=== PATIENT | male | born 1980 | race Caucasian/White ===

== ENCOUNTER → 2018-08-09 | Outpatient (CLI) | payer OTHER ==
--- NOTE | 2018-08-09 15:42 | US ---
EXAMINATION TYPE: US extremity nonvasc mass LT DATE OF EXAM: 08/09/2018 COMPARISON: NONE CLINICAL HISTORY: 37-year-old male M79.89 soft tissue swelling, left thigh. Palpable lump left upper lateral thigh/hip area x 10 years. TECHNIQUE: Targeted sonographic examination along the patient's left lateral thigh at the site of pal pable concern. FINDINGS: Left thigh/hip area of concern: 1.0 x 0.6 x 1.0cm superficial hypoechoic structure just deep to and p ossibly partially involving the skin surface shows an area of internal vascularity. Right thigh/hip for comparison: appears wnl IMPRESSION: A 1 cm round hypoechoic nodule located in the subcutaneous adipose layer just deep to and possibly pa rtially involving the dermal layer. Some vascularity is present within. The exact etiology is uncerta in but given that it has been present for 10 years, a benign process is suggested. If symptomatic or if clinical concern, consider excision.
== END | disposition home or self-care (01) ==
LOC: RADUSWWP 14:39
PROVIDERS: ATTEND Internal Medicine
DX: R22.42 Localized swelling, mass and lump, left lower limb (principal)

== ENCOUNTER 2022-07-05 06:46 | Day surgery (SDC) | payer BC, OTHER ==
[2022-07-04 09:29] VITALS: BMI 33.9
[2022-07-05] MEDS ORDERED: LACTATED RINGERS 1,000 ML IV SCH (07:08)
[2022-07-05 07:20] VITALS: TEMP 96.9
[2022-07-05] MEDS ORDERED: PROPOFOL 10 MG/ML 20 ML VIAL IV ONE (07:32)
--- NOTE | 2022-07-05 07:36 | P.GSHP ---
History of Present Illness H&P Date: 07/05/22 CHIEF COMPLAINT: Colon screen HISTORY OF PRESENT ILLNESS: The patient is a 41-year-old male who presents for colon screen. Lower endoscopy was offered for further evaluation and management. PAST MEDICAL HISTORY: Please see list. PAST SURGICAL HISTORY: Please see list. MEDICATIONS: Please see list. ALLERGIES: Please see list. SOCIAL HISTORY: No illicit drug use FAMILY HISTORY: No reports of Crohn disease or ulcerative colitis. REVIEW OF ORGAN SYSTEMS: CONSTITUTIONAL: No reports of fevers or chills. PHYSICAL EXAM: VITAL SIGNS: Stable GENERAL: Well-developed pleasant in no acute distress. HEENT: No scleral icterus. Extraocular movements grossly intact. Moist buccal mucosa. NECK: Supple without lymphadenopathy. CHEST: Unlabored respirations. Equal bilateral excursions. CARDIOVASCULAR: Regular rate and rhythm. Distal 2+ pulses. ABDOMEN: Soft, nontender, nondistended. MUSCULOSKELETAL: No clubbing, cyanosis, or edema. ASSESSMENT: 1. Colon screen. PLAN: 1. Recommend proceeding with a lower endoscopy Past Medical History Past Medical History: No Reported History Additional Past Medical History / Comment(s): HX BACK FX History of Any Multi-Drug Resistant Organisms: None Reported Past Surgical History: Orthopedic Surgery Additional Past Surgical History / Comment(s): PILONIDAL CYST REMOVED,DENTAL SURGERY,RIGHT KNEE ARTHROSCOPIC SURGERY, LEFT THIGH LIPOMA REMOVED Past Anesthesia/Blood Transfusion Reactions: Motion Sickness Additional Past Anesthesia/Blood Transfusion Reaction / Comment(s): HAS AGITATION WHEN WAKING UP FROM ANESTHESIA Smoking Status: Former smoker - Past Family History Father Family Medical History: Cancer Additional Family Medical History / Comment(s): SMALL CELL COLON Medications and Allergies Home Medications Medication Instructions Recorded Confirmed Type Fexofenadine/Pseudoephedrine 1 each PO DAILY PRN 12/11/13 07/04/22 History [Christel-D 24 Hour Tablet] buPROPion [Wellbutrin] 150 mg PO DAILY 07/04/22 07/05/22 History Allergies Allergy/AdvReac Type Severity Reaction Status Date / Time No Known Allergies Allergy Verified 07/05/22 07:14 Surgical - Exam Vital Signs Temp Pulse Resp BP Pulse Ox 96.9 F L 73 18 134/74 100 07/05/22 07:19 07/05/22 07:19 07/05/22 07:19 07/05/22 07:19 07/05/22 07:19
--- NOTE | 2022-07-05 07:57 | P.PCN ---
Date of Procedure: 07/05/22 Description of Procedure: PREOPERATIVE DIAGNOSIS: Personal history of colon polyps Family history colon cancer Colonoscopy screening POSTOPERATIVE DIAGNOSIS: Tubular adenoma sigmoid colon Sigmoid diverticulosis Internal hemorrhoids, grade 2 OPERATION: Colonoscopy to the ileocecal valve and appendiceal orifice, cecum Colonoscopy with cold forceps biopsy SURGEON: Imelda Weber MD. ANESTHESIA: MAC. INDICATIONS: The patient is an 41-year-old male who presents family history of malignant colon polyps and personal history of colon polyps. Last colonoscopy over 5 years. Benefits and risks were described and informed consent was obtained. DESCRIPTION OF PROCEDURE: The patient had undergone Sutab prep. The patient had been brought into the operating room and laid in the left lateral decubitus position. After adequate intravenous sedation, the rectum was examined with 2% lidocaine jelly. The prostate was unremarkable. External hemorrhoids were encountered. The rectal tone was within normal limits. No lesions were palpated in the rectal vault. An Olympus colonoscope was advanced until the cecum, ileocecal valve and appendiceal orifice were clearly viewed. The prep was excellent. Sigmoid diverticulosis was encountered. Colonic polyps were found and removed. No evidence of focal colitis was found. Retroflexion of the scope demonstrated grade 2 internal hemorrhoids without active bleeding or inflammation. The colon was desufflated. The patient had tolerated the procedure well. Withdrawal time was over 6 minutes. FINDINGS: Aronchick preparation quality scale 1 (1-5) Internal hemorrhoids, grade 2 External hemorrhoids, grade 2. No arteriovenous malformations. Sigmoid diverticulosis Removal of 2 polyps: - Cold forceps biopsy at 20 cm from the anal verge 2, 3 to 4 mm polyp. No focal colitis. RECOMMENDATIONS: Repeat colonoscopy 3 years, 2024 Plan - Discharge Summary New Discharge Prescriptions: Continue Fexofenadine/Pseudoephedrine [Christel-D 24 Hour Tablet] 1 each PO DAILY PRN PRN Reason: Allergy Symptoms buPROPion [Wellbutrin] 150 mg PO DAILY Discharge Medication List Fexofenadine/Pseudoephedrine [Christel-D 24 Hour Tablet] 1 each PO DAILY PRN 12/11/13 [History] buPROPion [Wellbutrin] 150 mg PO DAILY 07/04/22 [History] Follow up Appointment(s)/Referral(s): Imelda Weber MD [STAFF PHYSICIAN] - As Needed Patient Instructions/Handouts: Colorectal Polyps (GEN), Diverticulosis Diet (GEN), Diverticulosis (DC) Activity/Diet/Wound Care/Special Instructions: Repeat colonoscopy 3 years, 2024 Discharge Disposition: HOME SELF-CARE
[2022-07-05 07:59] VITALS: RESP 16
[2022-07-05 08:20] VITALS: BP 116/83; PULSE 71
== END 2022-07-05 08:45 | disposition home or self-care (01) ==
LOC: ORWHC2ENDO 06:46
PROVIDERS: ATTEND Surgery Plastic and Reconstructive Surgery
DX: Z12.11 Encounter for screening for malignant neoplasm of colon (principal); K63.5 Polyp of colon; Z80.0 Family history of malignant neoplasm of digestive organs; K57.30 Diverticulosis of large intestine without perforation or abscess without bleeding; K64.1 Second degree hemorrhoids; K64.4 Residual hemorrhoidal skin tags; Z98.890 Other specified postprocedural states; Z79.1 Long term (current) use of non-steroidal anti-inflammatories (NSAID); Z79.899 Other long term (current) drug therapy; Z87.891 Personal history of nicotine dependence
CPT/HCPCS: 88305; 45380; J2704